=== PATIENT | female | born 1975 | race Caucasian/White ===

== ENCOUNTER → 2020-12-08 | Outpatient (CLI) | payer SELFPAY | LOC: KOH-I 11:44 | DX: S86.012A Strain of left Achilles tendon, initial encounter (principal) | CPT/HCPCS: 73721 ==

== ENCOUNTER → 2021-06-10 | Outpatient (CLI) | payer BC | LOC: KOH-I 14:32 | DX: M79.671 Pain in right foot (principal); M79.672 Pain in left foot; M19.071 Primary osteoarthritis, right ankle and foot | CPT/HCPCS: 73630 ==